=== PATIENT | male | born 1950 | race Caucasian/White ===

== ENCOUNTER 2021-09-04 20:20 | Outpatient (CLI) | payer OTHER | END 2021-09-04 20:21 | disposition short-term general hospital (02) | LOC: EMS 20:20 | DX: R55 Syncope and collapse (principal) | CPT/HCPCS: A0425; A0427 ==

== ENCOUNTER 2023-06-27 13:10 | Outpatient (CLI) | payer OTHER | END 2023-06-27 23:59 | disposition short-term general hospital (02) | LOC: EMS 13:10 | DX: R07.9 Chest pain, unspecified (principal); H53.8 Other visual disturbances; R03.0 Elevated blood-pressure reading, without diagnosis of hypertension | CPT/HCPCS: A0425; A0429 ==